=== PATIENT | female | born 1965 | race Two or more races ===

== ENCOUNTER 2018-08-21 13:56 | Emergency (ER) | payer OTHER ==
[~2018-08-21] VITALS: Ht 160 cm; Wt 74.8 kg
[2018-08-21 13:56] VITALS: BP 139/87
--- NOTE | 2018-08-21 13:58 | NUR ---
ED Nurse Note: BROUGHT IN BY [id number] FROM HOME DUE TO SLIPPED AND FALL INJURY INSIDE THE BATH TUB. C/O RIGHT SHOULDER PAIN. NO HEAD INJURY AND NO TRAUMA.
--- NOTE | 2018-08-21 14:04 | Emergency Room Report ---
History of Present Illness General Chief Complaint: Fall Source: Patient Present Illness HPI Patient is a 53-year-old female presented after increased shoulder pain and hip pain after a fall. Patient a prior history of chronic hip pain. Patient reportedly had been seen at hospital yesterday for bronchitis. Patient reports having fallen in the bathroom due to right shoulder pain.Patient reports having slipped and fell in the bathtub. She denies loss of consciousness. She reports having increased right shoulder pain. Allergies: Coded Allergies: No Known Allergies (Unverified , 08/21/18) Patient History Past Medical History: see triage record Reviewed Nursing Documentation: PMH: Agreed; PSxH: Agreed Nursing Documentation-PMH Past Medical History: No History, Except For Hx Hypertension: Yes Review of Systems All Other Systems: negative except mentioned in HPI Physical Exam Vital Signs Date Time Temp Pulse Resp B/P (MAP) Pulse Ox O2 Delivery O2 Flow Rate FiO2 08/21/18 13:49 98.2 110 16 139/87 97 Room Air Sp02 EP Interpretation: reviewed, normal General Appearance: normal inspection, well appearing, no apparent distress, alert, GCS 15 Head: atraumatic ENT: normal ENT inspection, hearing grossly normal, normal voice Neck: normal inspection, full range of motion, supple, no bony tend Respiratory: normal inspection, no respiratory distress, no retraction, no wheezing Cardiovascular #1: regular rate, rhythm, no edema Gastrointestinal: normal inspection, normal bowel sounds, non tender, soft, no guarding, no hernia Genitourinary: no CVA tenderness Musculoskeletal: normal inspection, back normal, normal range of motion Neurologic: normal inspection, alert, oriented x3, responsive, team leader III-XII nml as tested, speech normal Psychiatric: normal inspection, judgement/insight normal, mood/affect normal Skin: normal inspection, normal color, no rash Medical Decision Making Diagnostic Impression: Primary Impression: Fall Additional Impressions: Shoulder pain, right Arthritis ER Course Patient presented after a fall. Differential diagnosis include was not limited to contusion, sprain, AC separation, humeral fracture, malingering among others. Patient was noted to have normal range of motion to the right shoulder. X-ray imaging was ordered due to patient's recent fall and trauma. Patient also reports having some hip pain. Pelvis x-ray was ordered due to this. X-ray imaging of the right shoulder read by radiology showed no evidence of acute fracture. Patient is noted to have adequate range of motion the right shoulder. Patient was noted to have a ER visit reportedly to [facility] for bronchitis 1 day prior to arrival. Pelvis x-ray showed some degenerative changes without evident fracture patient was noted to be ambulatory without assistance. Patient appears to be awake and alert and stable for discharge. She is given prescription for topical pain medications. Patient did not appear to be in any acute distress and was noted to be ambulatory with steady gait. Patient requested that I modify her discharge instructions to include injury to her hip. I informed her that this was a location which arthritis was being diagnosed. Last Vital Signs Date Time Temp Pulse Resp B/P (MAP) Pulse Ox O2 Delivery O2 Flow Rate FiO2 08/21/18 13:49 98.2 110 16 139/87 97 Room Air Status: improved Disposition: HOME, SELF-CARE Condition: Stable Scripts Diclofenac Sodium (Diclofenac Sodium) 100 Gm Gel..gram. 5 GM TP DAILY, #100 GM Prov: El Bowser MD 08/21/18 El Bowser MD Aug 21, 2018 14:04
[2018-08-21] MEDS: Acetaminophen 500mg (ES) tab ORAL ONE ×2 (14:15→14:59)
--- NOTE | 2018-08-21 14:56 | NUR ---
ED Nurse Note: PT BACK FROM XRAY
[2018-08-21] MEDS ORDERED: DICLOFENAC SOD100 GM TP (14:57)
[2018-08-21 15:05] VITALS: BP 139/87
--- NOTE | 2018-08-21 15:05 | NUR ---
ER Nurse Note: A/OX4. PT IS CLEARED BY DR. NGUYEN. DC INSTRUCTION AND PRESCRIPTIONS GIVEN, PT VERBALIZED UNDERSTSANDING. IV/ID WRISTBAND REMOVED. ALL BELONGINGS TAKEN BY PT. DENIES ANY PAIN AT THIS TIME. PT AMBULATED OUT OF ER WITH STEADY GAIT.
--- NOTE | 2018-08-21 15:39 | Diagnostic Imaging Report ---
Indication: Pelvic pain Technique: One view of the pelvis Comparison: none Findings: There is degenerative narrowing of the right hip joint. There is associated proliferative change. No acute fractures. No dislocations. The left hip joint space is preserved. Sacroiliac joint spaces are preserved. The soft tissues are unremarkable. Metallic foreign bodies projected in the left lateral proximal thigh region may be external to the patient Impression: Degenerative changes of the right hip No definite acute bony trauma
--- NOTE | 2018-08-21 15:40 | Diagnostic Imaging Report ---
Indication: Shoulder pain Technique: 3 views of the right shoulder Comparison: none Findings: No acute fractures. No dislocations. The joint spaces are preserved. Impression: Negative
== END 2018-08-21 15:05 | disposition home or self-care (01) ==
LOC: EDBD 13:56 → EMR 15:00
DX: M25.511 Pain in right shoulder (principal); W01.0XXA Fall on same level from slipping, tripping and stumbling without subsequent striking against object, initial encounter; Y92.002 Bathroom of unspecified non-institutional (private) residence as the place of occurrence of the external cause; M16.11 Unilateral primary osteoarthritis, right hip; I10 Essential (primary) hypertension
CPT/HCPCS: 72170; 99284